=== PATIENT | male | born 1960 | race Two or more races ===

== ENCOUNTER 2023-11-15 16:10 | Inpatient (IN) | payer OTHER ==
[2023-11-15 17:07] VITALS: BMI 21.9
[2023-11-15] MEDS ORDERED: BISMUTH SUBSALICYLATE 524 MG/30 ML PO PRN (18:12)
[2023-11-15] MEDS ORDERED: LOPERAMIDE HCL 2 MG CAPSULE PO PRN (18:12)
[2023-11-15] MEDS ORDERED: MAGNESIUM HYDROX 2400MG/30ML ORAL SUSPENSION 30 ML CUP PO PRN (18:12)
[2023-11-15] MEDS ORDERED: IBUPROFEN 600 MG TABLET (FP) PO PRN (18:12)
[2023-11-15] MEDS ORDERED: POLYETHYLENE GLYCOL (HEALTHYLAX) 3350 17 GM PACKET PO PRN (18:12)
[2023-11-15] MEDS ORDERED: NALOXONE HCL (KLOXXADO) 8 MG SPRAY NS PRN (18:12)
[2023-11-15] MEDS ORDERED: ACETAMINOPHEN 325 MG TABLET (FP) PO PRN (18:12)
[2023-11-15] MEDS ORDERED: guaiFENesin 600 MG TABLET.ER (FP) PO PRN (18:12)
[2023-11-15] MEDS ORDERED: BENZOCAINE/MENTHOL (CHLORASEPTIC ) LOZENGE MM PRN (18:12)
[2023-11-15] MEDS ORDERED: NALOXONE HCL 0.4 MG/ML VIAL IM PRN (18:12)
[2023-11-15] MEDS ORDERED: MAG HYDROX/AL HYDROX/SIMETH 30 ML UNIT-DOSE CUP PO PRN (18:12)
[2023-11-15] MEDS ORDERED: BENZONATATE 200 MG CAPSULE PO PRN (18:12)
[2023-11-15] MEDS ORDERED: IBUPROFEN 400 MG TABLET (FP) PO PRN (18:12)
[2023-11-15] MEDS ORDERED: ONDANSETRON *ODT* 4 MG TABLET SL PRN (18:12)
[2023-11-15] MEDS ORDERED: DICYCLOMINE HCL 10 MG CAPSULE PO PRN (18:12)
[2023-11-15] MEDS ORDERED: NICOTINE POLACRILEX 2 MG GUM BUC PRN (18:12)
[2023-11-15] MEDS ORDERED: AMMONIUM LACTATE 12% LOTION 225 GM BOTTLE TP PRN (18:16)
[2023-11-15] MEDS ORDERED: INSULIN (NOVOLOG) ASPART 100 UNITS/ML 10ML VIAL ONE (20:56)
[2023-11-15] MEDS: INSULIN ASPART SLIDING SCALE (NOVOLOG) 1 VIAL SQ SCH ×2 (20:58→22:57)
[2023-11-15] MEDS: THIAMINE HCL 100 MG TABLET (FP) PO SCH (21:57)
[2023-11-15] MEDS: MELATONIN 5 MG TABLETS PO SCH (21:57)
[2023-11-15] MEDS: hydrOXYzine PAMOATE 25 MG CAPSULE (FP) PO PRN (21:58)
[2023-11-15] MEDS: METHOCARBAMOL 500 MG TABLET PO PRN (21:58)
[2023-11-15] MEDS: metFORMIN HCL 500 MG TABLET (FP) PO SCH (21:58)
[2023-11-16] MEDS: METHOCARBAMOL 500 MG TABLET PO PRN ×2 (05:50→23:38)
[2023-11-16] MEDS: hydrOXYzine PAMOATE 25 MG CAPSULE (FP) PO PRN ×2 (05:50→23:38)
[2023-11-16] MEDS: metFORMIN HCL 500 MG TABLET (FP) PO SCH ×2 (06:06→23:37)
[2023-11-16] MEDS: INSULIN ASPART SLIDING SCALE (NOVOLOG) 1 VIAL SQ SCH ×4 (06:06→23:36)
[2023-11-16 10:06] LABS: HEMATOCRIT 32.2 % (35.4-49); HEMOGLOBIN 10.9 GM/dL (11.7-16.9); MCH 30.1 pg (25.7-33.7); MEAN CELL VOLUME 88.6 fl (80-96); MEAN PLT VOLUME 9.1 fl (7.5-11.1); PLATELET COUNT 159 10^3/uL (134-434); RBC 3.63 M/mm3 (4.00-5.60); WHITE BLOOD COUNT 7.6 K/mm3 (4.0-10.0)
[2023-11-16] MEDS: NICOTINE 14 MG/24 HOURS TOPICAL PATCH TD SCH (10:19)
[2023-11-16] MEDS: PRENATAL VITAMINS W/ FOLIC ACID TABLET (FP) PO SCH (10:19)
[2023-11-16] MEDS: ASPIRIN 81 MG CHEWABLE TABLETS PO SCH (10:19)
[2023-11-16] MEDS: LISINOPRIL 20 MG TABLET PO SCH (10:19)
[2023-11-16] MEDS: FOLIC ACID 1 MG TABLET (FP) PO SCH (10:19)
[2023-11-16 10:29] LABS: CHLORIDE 96 mmol/L (98-107); POTASSIUM 3.4 mmol/L (3.5-5.1); SODIUM 133 mmol/L (136-145)
[2023-11-16 10:35] LABS: ALBUMIN 2.6 g/dl (3.4-5.0); ANION GAP 6 mmol/L (4-13); BLOOD UREA NITROGEN 11.3 mg/dL (7-18); CALCIUM 8.6 mg/dL (8.5-10.1); CO2 32 mmol/L (21-32); GLUCOSE,RANDOM 297 mg/dL (74-106)
[2023-11-16 10:38] LABS: CREATININE 0.9 mg/dL (0.55-1.3); SGOT/AST 22 U/L (15-37); SGPT/ALT 23 U/L (13-61)
[2023-11-16 10:39] LABS: BILIRUBIN,TOTAL 0.4 mg/dL (0.2-1)
[2023-11-16 10:41] LABS: TOT PROT 6.8 g/dl (6.4-8.2)
[2023-11-16 10:43] LABS: ALK PHOS 110 U/L (45-117)
[2023-11-16] MEDS: cloNIDine HCL 0.1 MG TABLET PO PRN (17:49)
[2023-11-16] MEDS: THIAMINE HCL 100 MG TABLET (FP) PO SCH (23:37)
[2023-11-16] MEDS: MELATONIN 5 MG TABLETS PO SCH (23:37)
[2023-11-16] MEDS: ATORVASTATIN CA 40 MG TABLET (FP) PO SCH (23:46)
[2023-11-17] MEDS: metFORMIN HCL 500 MG TABLET (FP) PO SCH ×2 (06:11→23:33)
[2023-11-17] MEDS: INSULIN ASPART SLIDING SCALE (NOVOLOG) 1 VIAL SQ SCH ×4 (06:12→23:34)
[2023-11-17] MEDS: FOLIC ACID 1 MG TABLET (FP) PO SCH (10:27)
[2023-11-17] MEDS: LISINOPRIL 20 MG TABLET PO SCH (10:27)
[2023-11-17] MEDS: NICOTINE 14 MG/24 HOURS TOPICAL PATCH TD SCH (10:27)
[2023-11-17] MEDS: PRENATAL VITAMINS W/ FOLIC ACID TABLET (FP) PO SCH (10:27)
[2023-11-17] MEDS: ASPIRIN 81 MG CHEWABLE TABLETS PO SCH (10:27)
[2023-11-17] MEDS ORDERED: INSULIN (NOVOLOG) ASPART 100 UNITS/ML 10ML VIAL SQ ONE (12:03)
[2023-11-17] MEDS: ATORVASTATIN CA 40 MG TABLET (FP) PO SCH (23:33)
[2023-11-17] MEDS: MELATONIN 5 MG TABLETS PO SCH (23:33)
[2023-11-17] MEDS: THIAMINE HCL 100 MG TABLET (FP) PO SCH (23:34)
[2023-11-18] MEDS: metFORMIN HCL 500 MG TABLET (FP) PO SCH ×2 (06:07→21:15)
[2023-11-18] MEDS: INSULIN ASPART SLIDING SCALE (NOVOLOG) 1 VIAL SQ SCH ×4 (06:08→21:13)
[2023-11-18] MEDS ORDERED: methaDONE HCL 10 MG TABLET (FOR DETOX USE ONLY) PO ONE (10:00)
[2023-11-18] MEDS: PRENATAL VITAMINS W/ FOLIC ACID TABLET (FP) PO SCH (10:09)
[2023-11-18] MEDS: NICOTINE 14 MG/24 HOURS TOPICAL PATCH TD SCH (10:09)
[2023-11-18] MEDS: LISINOPRIL 20 MG TABLET PO SCH (10:11)
[2023-11-18] MEDS: FOLIC ACID 1 MG TABLET (FP) PO SCH (10:11)
[2023-11-18] MEDS: ASPIRIN 81 MG CHEWABLE TABLETS PO SCH (10:11)
[2023-11-18] MEDS: cloNIDine HCL 0.1 MG TABLET PO PRN (20:34)
[2023-11-18] MEDS: ATORVASTATIN CA 40 MG TABLET (FP) PO SCH (21:15)
[2023-11-18] MEDS: THIAMINE HCL 100 MG TABLET (FP) PO SCH (21:15)
[2023-11-18] MEDS: MELATONIN 5 MG TABLETS PO SCH (21:16)
[2023-11-18] MEDS: METHOCARBAMOL 500 MG TABLET PO PRN (21:16)
[2023-11-19] MEDS: METHOCARBAMOL 500 MG TABLET PO PRN ×2 (03:30→22:11)
[2023-11-19] MEDS: cloNIDine HCL 0.1 MG TABLET PO PRN ×2 (05:10→20:16)
[2023-11-19] MEDS: metFORMIN HCL 500 MG TABLET (FP) PO SCH ×2 (06:11→22:11)
[2023-11-19] MEDS: INSULIN ASPART SLIDING SCALE (NOVOLOG) 1 VIAL SQ SCH ×4 (06:13→22:12)
[2023-11-19] MEDS: PRENATAL VITAMINS W/ FOLIC ACID TABLET (FP) PO SCH (10:02)
[2023-11-19] MEDS: ASPIRIN 81 MG CHEWABLE TABLETS PO SCH (10:02)
[2023-11-19] MEDS: FOLIC ACID 1 MG TABLET (FP) PO SCH (10:02)
[2023-11-19] MEDS: NICOTINE 14 MG/24 HOURS TOPICAL PATCH TD SCH (10:03)
[2023-11-19] MEDS: LISINOPRIL 20 MG TABLET PO SCH (10:03)
[2023-11-19] MEDS ORDERED: INSULIN (NOVOLOG) ASPART 100 UNITS/ML 10ML VIAL SQ ONE (16:42)
[2023-11-19] MEDS ORDERED: MELATONIN 5 MG TABLETS PO SCH (16:43)
[2023-11-19] MEDS: THIAMINE HCL 100 MG TABLET (FP) PO SCH (22:10)
[2023-11-19] MEDS: ATORVASTATIN CA 40 MG TABLET (FP) PO SCH (22:10)
[2023-11-20] MEDS: metFORMIN HCL 500 MG TABLET (FP) PO SCH (06:07)
[2023-11-20] MEDS: INSULIN ASPART SLIDING SCALE (NOVOLOG) 1 VIAL SQ SCH ×2 (06:08→10:16)
[2023-11-20 08:39] VITALS: BP 138/84; PULSE 70; RESP 17; TEMP 98
[2023-11-20] MEDS: NICOTINE 14 MG/24 HOURS TOPICAL PATCH TD SCH (09:35)
[2023-11-20] MEDS: LISINOPRIL 20 MG TABLET PO SCH (09:35)
[2023-11-20] MEDS: ASPIRIN 81 MG CHEWABLE TABLETS PO SCH (09:35)
[2023-11-20] MEDS: PRENATAL VITAMINS W/ FOLIC ACID TABLET (FP) PO SCH (09:35)
[2023-11-20] MEDS: FOLIC ACID 1 MG TABLET (FP) PO SCH (09:35)
[2023-11-20] MEDS ORDERED: SUVOREXANT 10 MG TABLET PO PRN (22:00)
== END 2023-11-20 09:34 | disposition home or self-care (01) | DRG 773 ==
LOC: YASAS 16:10 → Y3N 18:50
PROVIDERS: ADMIT Allergy & Immunology; ATTEND Allergy & Immunology
PROC: HZ2ZZZZ Detoxification Services for Substance Abuse Treatment (ICD-10-PCS; principal; 2023-11-15)
DX: F11.23 Opioid dependence with withdrawal (principal); F10.20 Alcohol dependence, uncomplicated; F17.210 Nicotine dependence, cigarettes, uncomplicated; F19.282 Other psychoactive substance dependence with psychoactive substance-induced sleep disorder; I10 Essential (primary) hypertension; E78.2 Mixed hyperlipidemia; E11.59 Type 2 diabetes mellitus with other circulatory complications; Z79.84 Long term (current) use of oral hypoglycemic drugs; Z56.0 Unemployment, unspecified; Z59.00 Homelessness unspecified
CPT/HCPCS: 36415; 80053; 80307; 82962; 85027; 86780; 87635; 87811; 93005; 93010

== ENCOUNTER 2024-02-24 13:34 | Inpatient (IN) | payer OTHER ==
[2024-02-24 14:20] VITALS: BMI 22.2
[2024-02-24] MEDS ORDERED: MAG HYDROX/AL HYDROX/SIMETH 30 ML UNIT-DOSE CUP PO PRN (16:26)
[2024-02-24] MEDS ORDERED: BISMUTH SUBSALICYLATE 524 MG/30 ML PO PRN (16:26)
[2024-02-24] MEDS ORDERED: MAGNESIUM HYDROX 2400MG/30ML ORAL SUSPENSION 30 ML CUP PO PRN (16:26)
[2024-02-24] MEDS ORDERED: guaiFENesin 600 MG TABLET.ER (FP) PO PRN (16:26)
[2024-02-24] MEDS ORDERED: ACETAMINOPHEN 325 MG TABLET (FP) PO PRN (16:26)
[2024-02-24] MEDS ORDERED: POLYETHYLENE GLYCOL (HEALTHYLAX) 3350 17 GM PACKET PO PRN (16:26)
[2024-02-24] MEDS ORDERED: NALOXONE HCL (KLOXXADO) 8 MG SPRAY NS PRN (16:26)
[2024-02-24] MEDS ORDERED: LORazepam 1 MG TABLET PO PRN (16:26)
[2024-02-24] MEDS ORDERED: IBUPROFEN 600 MG TABLET (FP) PO PRN (16:26)
[2024-02-24] MEDS ORDERED: NALOXONE HCL 0.4 MG/ML VIAL IM PRN (16:26)
[2024-02-24] MEDS ORDERED: BENZONATATE 200 MG CAPSULE PO PRN (16:26)
[2024-02-24] MEDS ORDERED: BENZOCAINE/MENTHOL (CHLORASEPTIC ) LOZENGE MM PRN (16:26)
[2024-02-24] MEDS ORDERED: methaDONE HCL 10 MG TABLET (FOR DETOX USE ONLY) ONE (17:09)
[2024-02-24] MEDS: LORazepam 2 MG TABLET PO ONE (17:15)
[2024-02-24] MEDS: methaDONE HCL 10 MG TABLET PO ONE (17:17)
[2024-02-24] MEDS ORDERED: PRENATAL VITAMINS W/ FOLIC ACID TABLET (FP) PO ONE (17:28)
[2024-02-24] MEDS ORDERED: INSULIN (NOVOLOG) ASPART 100 UNITS/ML 10ML VIAL ONE ×2 (17:28→17:52)
[2024-02-24] MEDS ORDERED: cloNIDine HCL 0.1 MG TABLET ONE (17:28)
[2024-02-24] MEDS: PRENATAL VITAMINS W/ FOLIC ACID TABLET (FP) PO SCH (18:03)
[2024-02-24] MEDS: cloNIDine HCL 0.1 MG TABLET PO SCH (18:03)
[2024-02-24] MEDS: INSULIN ASPART SLIDING SCALE (NOVOLOG) 1 VIAL SQ SCH (18:12)
[2024-02-24] MEDS: NICOTINE 21 MG/24 HOURS TOPICAL PATCH TD SCH (18:45)
[2024-02-24] MEDS: INSULIN (NOVOLOG) ASPART 100 UNITS/ML 10ML VIAL SQ ONE (19:33)
[2024-02-24] MEDS: LORazepam 2 MG TABLET PO SCH (22:50)
[2024-02-24] MEDS: MELATONIN 5 MG TABLETS PO SCH (22:50)
[2024-02-24] MEDS: THIAMINE 100 MG TABLET PO SCH (22:51)
[2024-02-24] MEDS: methaDONE HCL 10 MG TABLET PO PRN (22:53)
[2024-02-25] MEDS: metFORMIN HCL 500 MG TABLET (FP) PO SCH (06:30)
[2024-02-25] MEDS: ASPIRIN 81 MG CHEWABLE TABLETS PO SCH (09:49)
[2024-02-25] MEDS: LISINOPRIL 20 MG TABLET PO SCH (09:49)
[2024-02-25] MEDS: methaDONE 40 MG, methaDONE 10 MG PO ONE (09:49)
[2024-02-25] MEDS: ATORVASTATIN CA 40 MG TABLET (FP) PO SCH (09:49)
[2024-02-25] MEDS: EMPAGLIFLOZIN (JARDIANCE) 25 MG TABLET PO SCH (11:00)
[2024-02-25] MEDS: FLU VACCINE (FLULAVAL) PF 60 MCG/0.5 ML SYRINGE 2023-2024 IM ONE (11:26)
[2024-02-25] MEDS: PNEUMOC 20-VAL CONJ-DIP CRM/PF 0.5 ML SYRINGE IM ONE (11:26)
[2024-02-25 14:52] LABS: HEMATOCRIT 36.2 % (35.4-49); HEMOGLOBIN 12.3 GM/dL (11.7-16.9); MCH 30.8 pg (25.7-33.7); MCHC 33.9 g/dl (32.0-35.9); MEAN CELL VOLUME 90.7 fl (80-96); PLATELET COUNT 214 10^3/uL (134-434); RBC 3.99 M/mm3 (4.00-5.60); RDW 14.8 % (11.9-15.9); WHITE BLOOD COUNT 6.2 K/mm3 (4.0-10.0)
[2024-02-25 14:57] LABS: SODIUM 128 mmol/L (136-145)
[2024-02-25 14:58] LABS: CHLORIDE 95 mmol/L (98-107); POTASSIUM 4.1 mmol/L (3.5-5.1)
[2024-02-25 15:00] LABS: ALBUMIN 3.2 g/dl (3.4-5.0); ANION GAP 5 mmol/L (4-13); BLOOD UREA NITROGEN 17.4 mg/dL (7-18); CALCIUM 9.8 mg/dL (8.5-10.1); CO2 28 mmol/L (21-32); GLUCOSE,RANDOM 313 mg/dL (74-106)
[2024-02-25 15:04] LABS: SGOT/AST 36 U/L (15-37)
[2024-02-25 15:05] LABS: BILIRUBIN,TOTAL 0.4 mg/dL (0.2-1); TOT PROT 7.7 g/dl (6.4-8.2)
[2024-02-25 15:07] LABS: ALK PHOS 105 U/L (45-117)
[2024-02-25 15:12] LABS: SGPT/ALT 39 U/L (13-61)
[2024-02-25] MEDS: IBUPROFEN 400 MG TABLET (FP) PO PRN (16:59)
[2024-02-26] MEDS ORDERED: cloNIDine HCL 0.1 MG TABLET PO PRN
[2024-02-26] MEDS: LOPERAMIDE HCL 2 MG CAPSULE PO PRN (02:46)
[2024-02-26] MEDS ORDERED: INSULIN (NOVOLOG) ASPART 100 UNITS/ML 10ML VIAL ONE (04:51)
[2024-02-26] MEDS: LORazepam 1 MG TABLET PO SCH (05:26)
[2024-02-26] MEDS: DICYCLOMINE HCL 10 MG CAPSULE PO PRN (07:53)
[2024-02-26] MEDS: methaDONE 40 MG, methaDONE 20 MG PO ONE (09:59)
[2024-02-26] MEDS: LACTULOSE 20 GM/30 ML UDC (FOR ORAL USE ONLY) PO SCH (17:10)
[2024-02-27] MEDS ORDERED: LORazepam 0.5 MG TABLET PO PRN
[2024-02-27] MEDS: LORazepam 0.5 MG TABLET PO SCH (05:45)
[2024-02-27] MEDS ORDERED: INSULIN (NOVOLOG) ASPART 100 UNITS/ML 10ML VIAL ONE (06:37)
[2024-02-27] MEDS: glipiZIDE 5 MG TABLET (FP) PO SCH (06:40)
[2024-02-27] MEDS: methaDONE 40 MG, methaDONE 30 MG PO ONE (09:47)
[2024-02-27] MEDS: ONDANSETRON *ODT* 4 MG TABLET SL PRN (20:14)
[2024-02-27] MEDS: TRIMETHOBENZAMIDE HCL 200MG/2ML INJ IM ONE (21:59)
[2024-02-28] MEDS: LORazepam 0.5 MG TABLET PO ONE (05:32)
[2024-02-28] MEDS ORDERED: TRIMETHOBENZAMIDE HCL 200MG/2ML INJ IM PRN (08:27)
[2024-02-28] MEDS ORDERED: methaDONE HCL 40 MG DISPERSABLE TABLET PO ONE (10:00)
[2024-02-28] MEDS: methaDONE HCL 40 MG DISPERSABLE TABLET PO ONE (11:12)
[2024-02-28] MEDS ORDERED: INSULIN (NOVOLOG) ASPART 100 UNITS/ML 10ML VIAL ONE (17:24)
[2024-02-28] MEDS: INSULIN (LEVEMIR) 100 UNITS/ML UNITS SQ SCH (22:06)
[2024-02-28] MEDS: hydrOXYzine PAMOATE 25 MG CAPSULE (FP) PO PRN (22:07)
[2024-02-28] MEDS: METHOCARBAMOL 500 MG TABLET PO PRN (22:07)
[2024-02-29 09:25] VITALS: BP 108/64; PULSE 92; RESP 18; TEMP 96.8
[2024-02-29] MEDS: methaDONE HCL 40 MG DISPERSABLE TABLET PO ONE (09:48)
[2024-02-29] MEDS: SODIUM CHLORIDE NASAL SPRAY 44 ML BOTTLE NS PRN (09:51)
[2024-02-29] MEDS ORDERED: methaDONE 80 MG, methaDONE 10 MG PO ONE (10:00)
[2024-02-29] MEDS ORDERED: methaDONE HCL 10 MG TABLET PO ONE (10:00)
[2024-02-29] MEDS ORDERED: INSULIN (NOVOLOG) ASPART 100 UNITS/ML 10ML VIAL ONE (11:40)
== END 2024-02-29 12:18 | disposition other institution (70) | DRG 773 ==
LOC: YASAS 13:34 → Y6N 16:51
PROVIDERS: ADMIT Allergy & Immunology; ATTEND Surgery
PROC: HZ2ZZZZ Detoxification Services for Substance Abuse Treatment (ICD-10-PCS; principal; 2024-02-24)
DX: F11.23 Opioid dependence with withdrawal (principal); F10.230 Alcohol dependence with withdrawal, uncomplicated; F17.210 Nicotine dependence, cigarettes, uncomplicated; E78.2 Mixed hyperlipidemia; I10 Essential (primary) hypertension; E11.42 Type 2 diabetes mellitus with diabetic polyneuropathy; Z79.4 Long term (current) use of insulin; Z79.84 Long term (current) use of oral hypoglycemic drugs; R11.2 Nausea with vomiting, unspecified; R79.89 Other specified abnormal findings of blood chemistry
CPT/HCPCS: 36415; 80053; 80305; 80307; 82140; 82962; 83036; 85027; 86780; 87811; 90677; 90686; 93005; 93010; G0008; G0009; Q0162

== ENCOUNTER 2024-02-29 12:24 | Inpatient (IN) | payer OTHER ==
[2024-02-29] MEDS ORDERED: NALOXONE (NYS OPIOID OVERDOSE PROGRAM) 4 MG/0.1 ML SPRAY NS PRN (14:11)
[2024-02-29] MEDS ORDERED: BENZOCAINE/MENTHOL (CHLORASEPTIC ) LOZENGE MM PRN (14:11)
[2024-02-29] MEDS ORDERED: NICOTINE POLACRILEX 4 MG GUM BUC PRN (14:11)
[2024-02-29] MEDS ORDERED: NICOTINE POLACRILEX 4 MG LOZENGE BC PRN (14:11)
[2024-02-29] MEDS ORDERED: LOPERAMIDE HCL 2 MG CAPSULE PO PRN (14:11)
[2024-02-29] MEDS ORDERED: POLYETHYLENE GLYCOL (HEALTHYLAX) 3350 17 GM PACKET PO PRN (14:11)
[2024-02-29] MEDS ORDERED: AMMONIUM LACTATE 12% LOTION 225 GM BOTTLE TP PRN (14:11)
[2024-02-29] MEDS ORDERED: BENZONATATE 200 MG CAPSULE PO PRN (14:11)
[2024-02-29] MEDS ORDERED: NALOXONE HCL 0.4 MG/ML VIAL IVPUSH PRN (14:11)
[2024-02-29] MEDS ORDERED: MAG HYDROX/AL HYDROX/SIMETH 30 ML UNIT-DOSE CUP PO PRN (14:11)
[2024-02-29] MEDS ORDERED: guaiFENesin 600 MG TABLET.ER (FP) PO PRN (14:11)
[2024-02-29] MEDS ORDERED: MAGNESIUM HYDROX 2400MG/30ML ORAL SUSPENSION 30 ML CUP PO PRN (14:11)
[2024-02-29] MEDS: INSULIN ASPART SLIDING SCALE (NOVOLOG) 1 VIAL SQ SCH (16:33)
[2024-02-29] MEDS: metFORMIN HCL 500 MG TABLET (FP) PO SCH (16:34)
[2024-02-29] MEDS: INSULIN (LEVEMIR) 100 UNITS/ML UNITS SQ SCH (21:00)
[2024-02-29] MEDS: GABAPENTIN 300 MG CAPSULE PO SCH (21:00)
[2024-02-29] MEDS: THIAMINE 100 MG TABLET PO SCH (21:01)
[2024-02-29] MEDS: MELATONIN 5 MG TABLETS PO SCH (21:01)
[2024-02-29] MEDS: METHOCARBAMOL 500 MG TABLET PO PRN (21:01)
[2024-03-01] MEDS: EMPAGLIFLOZIN (JARDIANCE) 25 MG TABLET PO SCH (06:40)
[2024-03-01] MEDS: glipiZIDE 5 MG TABLET (FP) PO SCH (06:40)
[2024-03-01] MEDS: LISINOPRIL 20 MG TABLET PO SCH (09:55)
[2024-03-01] MEDS: PRENATAL VITAMINS W/ FOLIC ACID TABLET (FP) PO SCH (09:55)
[2024-03-01] MEDS: NICOTINE 21 MG/24 HOURS TOPICAL PATCH TD SCH (09:55)
[2024-03-01] MEDS: ASPIRIN 81 MG CHEWABLE TABLETS PO SCH (09:56)
[2024-03-01] MEDS: FOLIC ACID 1 MG TABLET (FP) PO SCH (09:56)
[2024-03-01] MEDS: ATORVASTATIN CA 40 MG TABLET (FP) PO SCH (09:56)
[2024-03-01] MEDS: methaDONE HCL 40 MG DISPERSABLE TABLET PO SCH (10:31)
[2024-03-01] MEDS: PERMETHRIN (NIX CREAM SCALP RINSE) 59 ML 1% BOTTLE TP ONE (13:13)
[2024-03-01 14:42] LABS: HIV INTERPRETATION NEGATIVE (NEGATIVE)
[2024-03-04] MEDS ORDERED: INSULIN ASPART SLIDING SCALE (NOVOLOG) 1 VIAL SQ ONE (07:52)
[2024-03-06] MEDS: hydrOXYzine PAMOATE 25 MG CAPSULE (FP) PO PRN (06:05)
[2024-03-06] MEDS ORDERED: INSULIN ASPART SLIDING SCALE (NOVOLOG) 1 VIAL SQ ONE (11:53)
[2024-03-06] MEDS ORDERED: methaDONE HCL 40 MG DISPERSABLE TABLET PO SCH (15:45)
[2024-03-06] MEDS ORDERED: methaDONE 40 MG, methaDONE 30 MG PO SCH (16:30)
[2024-03-07] MEDS: methaDONE 40 MG, methaDONE 30 MG PO SCH (06:30)
[2024-03-07] MEDS ORDERED: INSULIN ASPART SLIDING SCALE (NOVOLOG) 1 VIAL SQ ONE (11:48)
[2024-03-08] MEDS ORDERED: INSULIN ASPART SLIDING SCALE (NOVOLOG) 1 VIAL SQ ONE ×2 (07:34→11:55)
[2024-03-09] MEDS ORDERED: INSULIN ASPART SLIDING SCALE (NOVOLOG) 1 VIAL SQ ONE (11:58)
[2024-03-10] MEDS: ACETAMINOPHEN 325 MG TABLET (FP) PO PRN (06:29)
[2024-03-12] MEDS ORDERED: GABAPENTIN 300 MG CAPSULE PO SCH (11:31)
[2024-03-12] MEDS: GABAPENTIN 300 MG, GABAPENTIN 200 MG PO SCH (13:20)
[2024-03-12] MEDS: MELATONIN 5 MG TABLETS PO SCH (21:51)
[2024-03-13] MEDS ORDERED: INSULIN ASPART SLIDING SCALE (NOVOLOG) 1 VIAL SQ ONE ×2 (07:58→11:50)
[2024-03-13] MEDS: ONDANSETRON *ODT* 4 MG TABLET SL PRN (16:35)
[2024-03-14] MEDS: IBUPROFEN 600 MG TABLET (FP) PO PRN (10:28)
[2024-03-14] MEDS ORDERED: INSULIN ASPART SLIDING SCALE (NOVOLOG) 1 VIAL SQ ONE (12:02)
[2024-03-15] MEDS ORDERED: guaiFENesin 600 MG TABLET.ER (FP) PO PRN (09:10)
[2024-03-15] MEDS ORDERED: DICYCLOMINE HCL 10 MG CAPSULE PO PRN (09:10)
[2024-03-15] MEDS ORDERED: BENZONATATE 200 MG CAPSULE PO PRN (09:10)
[2024-03-15] MEDS ORDERED: BISMUTH SUBSALICYLATE 262 MG/15 ML BTL PO PRN (09:10)
[2024-03-15] MEDS ORDERED: METHOCARBAMOL 500 MG TABLET PO PRN (09:10)
[2024-03-15] MEDS ORDERED: INSULIN ASPART SLIDING SCALE (NOVOLOG) 1 VIAL SQ ONE (11:12)
[2024-03-16] MEDS: methaDONE 40 MG, methaDONE 20 MG PO SCH (05:43)
[2024-03-16] MEDS ORDERED: methaDONE HCL 10 MG TABLET PO SCH (06:00)
[2024-03-16] MEDS ORDERED: INSULIN ASPART SLIDING SCALE (NOVOLOG) 1 VIAL SQ ONE (07:42)
[2024-03-19] MEDS ORDERED: methaDONE HCL 10 MG TABLET PO SCH (06:00)
[2024-03-19] MEDS: methaDONE 40 MG, methaDONE 10 MG PO SCH (06:33)
[2024-03-19] MEDS: IBUPROFEN 400 MG TABLET (FP) PO PRN (09:56)
[2024-03-19] MEDS: BACITRACIN 0.9 GM PACKET TP SCH (13:38)
[2024-03-21] MEDS: methaDONE HCL 40 MG DISPERSABLE TABLET PO SCH (06:53)
[2024-03-21] MEDS ORDERED: INSULIN ASPART SLIDING SCALE (NOVOLOG) 1 VIAL SQ ONE (12:02)
[2024-03-21] MEDS: methaDONE HCL 40 MG DISPERSABLE TABLET PO ONE (14:42)
[2024-03-22] MEDS ORDERED: methaDONE HCL 40 MG DISPERSABLE TABLET PO ONE (06:00)
[2024-03-22] MEDS: methaDONE HCL 40 MG DISPERSABLE TABLET PO ONE (06:02)
[2024-03-23] MEDS: methaDONE HCL 10 MG TABLET PO SCH (06:26)
[2024-03-26] MEDS: methaDONE HCL 10 MG TABLET PO SCH (06:06)
[2024-03-26] MEDS: CLINDAMYCIN HCL 150 MG CAPSULE (FP) PO SCH (11:10)
[2024-03-28] MEDS: methaDONE HCL 10 MG TABLET PO SCH (06:41)
[2024-03-28 06:43] VITALS: BP 142/90; PULSE 88; RESP 18; TEMP 97.8
== END 2024-03-28 09:59 | disposition home or self-care (01) | DRG 772 ==
LOC: YASAS 12:24 → Y3W 12:25
PROVIDERS: ADMIT Allergy & Immunology; ATTEND Psychiatry & Neurology Pain Medicine
PROC: HZ42ZZZ Group Counseling for Substance Abuse Treatment, Cognitive-Behavioral (ICD-10-PCS; principal; 2024-02-29)
DX: F11.20 Opioid dependence, uncomplicated (principal); F10.20 Alcohol dependence, uncomplicated; F17.210 Nicotine dependence, cigarettes, uncomplicated; I25.10 Atherosclerotic heart disease of native coronary artery without angina pectoris; I10 Essential (primary) hypertension; E78.5 Hyperlipidemia, unspecified; E11.42 Type 2 diabetes mellitus with diabetic polyneuropathy; Z79.4 Long term (current) use of insulin; Z79.84 Long term (current) use of oral hypoglycemic drugs; L02.414 Cutaneous abscess of left upper limb; R79.89 Other specified abnormal findings of blood chemistry; Z59.01 Sheltered homelessness
CPT/HCPCS: 36415; 82140; 82962; 86803; 87389; 87522; Q0162